=== PATIENT | male | born 1970 | race Caucasian/White ===

== ENCOUNTER 2017-10-20 14:35 | Inpatient (IN) | payer OTHER ==
[2017-10-19 10:50] LABS: ANION GAP 6 mmol/L (5-15); CALCIUM 9.5 mg/dL (8.5-10.1); CHLORIDE 105 mmol/L (98-107); CREATININE 1.08 mg/dL (0.7-1.3)
[2017-10-19 10:56] LABS: INTERNATIONAL NORMALIZED RATIO 0.97 (0.93-1.1); PROTHROMBIN TIME 10.1 Seconds (9.6-11.5)
[2017-10-19 11:31] LABS: BASOPHILS # (AUTO) 0.07 x10^3/uL (0-0.1); BASOPHILS % (AUTO) 1 % (0-1); EOSINOPHILS % (AUTO) 3 % (1-7); LYMPHOCYTES # (AUTO) 2.65 x10^3/uL (1-3.4); LYMPHOCYTES % (AUTO) 35 % (22-44); MD NO; MEAN CORPUSCULAR HEMOGLOBIN 30.5 pg (27.5-34.5); MEAN CORPUSCULAR HGB CONC 34.3 g/dL (33.2-36.2); MEAN PLATELET VOLUME 9.1 fL (7.4-10.4); MONOCYTES # (AUTO) 0.69 x10^3/uL (0.2-0.8); MONOCYTES % (AUTO) 9 % (2-9); NEUTROPHILS # (AUTO) 4.07 x10^3/uL (1.8-6.8); NEUTROPHILS % (AUTO) 53 % (42-75); PLATELET COUNT 271 x10^3/uL (130-400); RED BLOOD COUNT 4.93 x10^6/uL (4.38-5.82); RED CELL DISTRIBUTION WIDTH 13.1 % (9.4-14.8)
[~2017-10-20] VITALS: Ht 180.3 cm; Wt 96.2 kg
[~2017-10-20 14:35] MED LIST: BACITRACIN 50,000 UNIT ONE; BUPIVACAINE/PF-EPI 0.5% 1:200K ONE; CEFAZOLIN 1,000 MG ONE; CYCL-259 PO; FENTANYL PF 250 MCG/5ML ONE; GLYCOPYRROLATE 0.4 MG/2 ML, 2ML ONE; META800T PO; MIDAZOLAM 1 MG/ML, 2ML ONE; NEOSTIGMINE 1 MG/ML, 10ML ONE; PROPOFOL 10 MG/ML, 20ML ONE; PROPOFOL 50 ML ONE; ROCURONIUM 10MG/ML,5ML ONE; THROMBIN 20,000 UNIT VIAL TP ONE; WATER-INJECTION,STERILE 10 ML IV ONE
[2017-10-20] MEDS ORDERED: LACTATED RINGERS 1,000 ML IV SCH (14:43)
[2017-10-20] MEDS ORDERED: OxyconTIN ER 20 MG TAB.ER PO ONE (15:00)
[2017-10-20] MEDS ORDERED: GABAPENTIN 300 MG CAPSULE PO ONE (15:00)
[2017-10-20] MEDS ORDERED: ACETAMINOPHEN 500 MG TABLET PO ONE (15:00)
[2017-10-20] MEDS ORDERED: PROMETHAZINE 25 MG/ML, 1ML IV PRN (16:00)
[2017-10-20] MEDS ORDERED: MEPERIDINE/PF 25MG/0.5ML IVPush PRN (16:00)
[2017-10-20] MEDS ORDERED: LABETALOL 5MG/ML, 20ML IV PRN ×2 (16:00→20:00)
[2017-10-20] MEDS ORDERED: ONDANSETRON ODT 8 MG PO PRN (16:00)
[2017-10-20] MEDS ORDERED: HYDROmorphone 1 MG/ML, 1ML IV PRN (16:00)
[2017-10-20] MEDS ORDERED: MORPHINE SULFATE 4 MG/ML, 1ML IVPush PRN (16:00)
[2017-10-20] MEDS ORDERED: OXYcodone 5 MG/5 ML ORAL.SOL UDC PO PRN (16:00)
[2017-10-20] MEDS ORDERED: FENTANYL PF 100 MCG/2ML IV PRN (16:00)
[2017-10-20] MEDS ORDERED: PROMETHAZINE 12.5 MG SUPP PR PRN (16:00)
[2017-10-20] MEDS ORDERED: ONDANSETRON 2MG/ML, 2ML IV PRN ×2 (16:00→20:00)
[2017-10-20] MEDS ORDERED: hydrALAzine 20 MG/ML, 1ML IV PRN (16:00)
[2017-10-20] MEDS ORDERED: PROMETHAZINE 25 MG SUPP PR PRN (16:00)
[2017-10-20] MEDS ORDERED: KETOROLAC 30 MG/1 ML ONE (17:24)
[2017-10-20] MEDS ORDERED: KETOROLAC 30 MG/1 ML IVPush ONE (17:30)
[2017-10-20] MEDS ORDERED: METHOCARBAMOL 1,000 MG in DEXTROSE 5% 100 ML IV ONE (18:00)
[2017-10-20] MEDS ORDERED: PROMETHAZINE 25 MG/ML, 1ML IM PRN (20:00)
[2017-10-20] MEDS ORDERED: BISACODYL 10 MG SUPP PR PRN (20:00)
[2017-10-20] MEDS ORDERED: DIAZEPAM 5 MG/ML, 2ML IV PRN (20:00)
[2017-10-20] MEDS ORDERED: morphine SULFATE 10 MG/ML, 1ML IV PRN (20:00)
[2017-10-20] MEDS ORDERED: MAGNESIUM HYDROXIDE 8%, 30ML UDC PO PRN (20:00)
[2017-10-20] MEDS ORDERED: ACETAMINOPHEN 650 MG SUPP PR PRN (20:00)
[2017-10-20] MEDS ORDERED: DIAZEPAM 5 MG TABLET PO PRN (20:00)
[2017-10-20] MEDS ORDERED: DIPHENHYDRAMINE 50 MG/ML, 1ML IVPush PRN (20:00)
[2017-10-20] MEDS: NS + 20MEQ KCL 1,000 ML IV SCH (20:00)
[2017-10-20] MEDS ORDERED: ACETAMINOPHEN 325 MG TABLET PO PRN (20:00)
[2017-10-20 20:05] VITALS: BP 109/70
[2017-10-20] MEDS ORDERED: CYCLOBENZAPRINE 10 MG TABLET PO SCH (21:00)
[2017-10-20] MEDS ORDERED: ZOLPIDEM 5MG TABLET PO PRN (21:00)
[2017-10-20] MEDS: KETOROLAC 30 MG/1 ML IV SCH ×2 (23:00→23:24)
[2017-10-21 00:14] VITALS: BP 108/73
[2017-10-21] MEDS: CEFAZOLIN PMX 1GM/50ML 50 ML IVPB SCH ×2 (00:34→08:06)
[2017-10-21] MEDS: METHOCARBAMOL 750 MG in DEXTROSE 5% 100 ML IV SCH ×2 (03:31→11:22)
[2017-10-21 04:08] VITALS: BP 105/72
[2017-10-21 07:09] VITALS: BP 110/74
[2017-10-21] MEDS: NS + 20MEQ KCL 1,000 ML IV SCH (08:03)
[2017-10-21] MEDS: HYDROcodone/APAP 10/325 MG TABLET PO PRN ×3 (08:14→13:04)
[2017-10-21] MEDS ORDERED: SENNA/DOCUSATE TABLET PO SCH (09:00)
[2017-10-21] MEDS ORDERED: MAGNESIUM HYDROXIDE 8%, 30ML UDC PO ONE (11:00)
[2017-10-21] MEDS ORDERED: DEXAMETHASONE 4 MG TABLET PO SCH (11:00)
[2017-10-21] MEDS ORDERED: HYDR-3307 PO (11:18)
[2017-10-23] MEDS ORDERED: METHOCARBAMOL 750 MG TABLET PO SCH (06:00)
== END 2017-10-21 14:00 | disposition home or self-care (01) | DRG 520 ==
LOC: OUT 14:35 → EDSTATUS 17:30 → 4NOR 18:26 → OUT 18:36 → DCLOUNGE 10-21 13:40
PROVIDERS: ADMIT Neurological Surgery; ATTEND Neurological Surgery
PROC: 01NR0ZZ Release Sacral Nerve, Open Approach (ICD-10-PCS; 2017-10-20)
PROC: 0SB40ZZ Excision of Lumbosacral Disc, Open Approach (ICD-10-PCS; principal; 2017-10-20 16:30)
DX: M51.17 Intervertebral disc disorders with radiculopathy, lumbosacral region (principal); Z88.8 Allergy status to other drugs, medicaments and biological substances
CPT/HCPCS: 36415; 71046; 72100; 80048; 85025; 85610; 85730; 93005; G0378; J0690; J1885; J2250; J2270; J2704; J2710; J3010; J2800; J7120